=== PATIENT | female | born 1930 | race Caucasian/White ===

== ENCOUNTER 2016-02-24 | Outpatient (CLI) | payer MEDICARE, OTHER | END 2016-02-24 12:25 | disposition critical access hospital (66) | DX: R42 Dizziness and giddiness (principal) | CPT/HCPCS: A0425; A0429 ==

== ENCOUNTER 2016-02-24 12:34 | Inpatient (IN) | payer MEDICARE, OTHER ==
[2016-02-24] MEDS ORDERED: NITROGLYCERIN 2% PASTE TOP STA (15:02)
[2016-02-24] MEDS ORDERED: ASPIRIN CHEW 81 MG TABLET PO STA (15:02)
[2016-02-24] MEDS ORDERED: FUROSEMIDE 40 MG/4 ML VIAL IVP STA (15:02)
[2016-02-24] MEDS ORDERED: ASPIRIN CHEW 81 MG TABLET ONE (15:30)
[2016-02-24] MEDS ORDERED: FUROSEMIDE 40 MG/4 ML VIAL ONE (15:30)
[2016-02-24] MEDS ORDERED: ENOXAPARIN 40 MG/0.4 ML SYRINGE SUBQ STA (15:35)
[2016-02-24] MEDS ORDERED: ENOXAPARIN 40 MG/0.4 ML SYRINGE SUBQ ONE (15:44)
[2016-02-24] MEDS ORDERED: HYDROcod/ACETAM 5/325 MG TABLET PO PRN (16:26)
[2016-02-24] MEDS ORDERED: SODIUM CHLORIDE FLUSH 0.9% 10 ML SYRINGE IVP PRN (16:26)
[2016-02-24] MEDS ORDERED: ACETAMINOPHEN 325 MG TABLET PO PRN (16:26)
[2016-02-24] MEDS ORDERED: ONDANSETRON ODT 4 MG TABLET TL PRN (16:26)
[2016-02-24] MEDS ORDERED: NITROGLYCERIN SL 0.4 MG TABLET SL PRN (16:47)
[2016-02-24] MEDS ORDERED: MORPHINE 2 MG/ML SYRINGE IVP PRN (16:47)
[2016-02-24] MEDS ORDERED: PANTOPRAZOLE 40 MG TABLET PO SCH (19:00)
[2016-02-24] MEDS ORDERED: SODIUM CHLORIDE 0.45% 1,000 ML IV SCH (19:00)
[2016-02-24] MEDS ORDERED: NYSTATIN POWDER 15 GM TOP PRN (22:44)
[2016-02-24] MEDS: cefTRIAXone 1 GM in SODIUM CHLORIDE 0.9% MINIBAG 100 ML IV SCH (22:59)
[2016-02-24] MEDS: SODIUM CHLORIDE FLUSH 0.9% 10 ML SYRINGE IVP SCH (23:17)
[2016-02-25] MEDS ORDERED: PANTOPRAZOLE 40 MG VIAL IVP SCH (07:00)
[2016-02-25] MEDS: SODIUM CHLORIDE FLUSH 0.9% 10 ML SYRINGE IVP SCH (07:02)
[2016-02-25] MEDS ORDERED: FUROSEMIDE 20 MG TABLET PO SCH (08:00)
[2016-02-25] MEDS: cefTRIAXone 1 GM in SODIUM CHLORIDE 0.9% MINIBAG 100 ML IV SCH (08:35)
[2016-02-25] MEDS ORDERED: SODIUM CHLORIDE 0.9% 500 ML IV ONE (09:00)
[2016-02-25] MEDS ORDERED: DEXTROSE 5%-0.45% NACL 1,000 ML IV SCH (09:00)
[2016-02-25] MEDS ORDERED: ASPIRIN EC 81 MG TABLET PO SCH (09:00)
[2016-02-25] MEDS ORDERED: ENOXAPARIN 30 MG/0.3 ML SYRINGE SUBQ SCH (09:00)
[2016-02-25] MEDS ORDERED: POLYETHYLENE GLYCOL 3350 17 GM PACKET PO SCH (09:00)
[2016-02-25] MEDS ORDERED: FUROSEMIDE 20 MG/2 ML VIAL IVP SCH (10:00)
[2016-02-25] MEDS ORDERED: ACETAMINOPHEN 1,000 MG/100 ML 100 ML IV SCH (10:00)
[2016-02-25] MEDS ORDERED: LOPERAMIDE 2 MG CAPSULE PO PRN (12:32)
[2016-02-25] MEDS ORDERED: MORPHINE SOL 10 MG/0.5 ML SYRINGE PO PRN (12:32)
[2016-02-25] MEDS ORDERED: LORazepam 2 MG/ML SYRINGE IVP PRN (12:32)
[2016-02-25] MEDS ORDERED: GLYCOPYRROLATE 1 MG/5 ML VIAL SUBQ PRN (12:32)
[2016-02-25] MEDS ORDERED: ONDANSETRON ODT 4 MG TABLET TL PRN (12:32)
[2016-02-25] MEDS ORDERED: SCOPOLAMINE PATCH TOP SCH (13:00)
[2016-02-25] MEDS ORDERED: NYSTATIN POWDER 15 GM TOP SCH (16:00)
[2016-02-25] MEDS ORDERED: ATROPINE 1% OPHTH DROPS 2 ML EACHEYE PRN (18:10)
[2016-02-25] MEDS ORDERED: MINERAL OIL/PETROLAT OPHTH OINT EACHEYE PRN (18:33)
== END 2016-02-25 20:05 | disposition expired ==
DX: I11.0 Hypertensive heart disease with heart failure (principal); I50.9 Heart failure, unspecified; R09.02 Hypoxemia; I21.3 ST elevation (STEMI) myocardial infarction of unspecified site; I44.7 Left bundle-branch block, unspecified; N39.0 Urinary tract infection, site not specified; Z68.1 Body mass index [BMI] 19.9 or less, adult; I50.43 Acute on chronic combined systolic (congestive) and diastolic (congestive) heart failure; I95.9 Hypotension, unspecified; E86.0 Dehydration; I35.0 Nonrheumatic aortic (valve) stenosis; I48.0 Paroxysmal atrial fibrillation; R63.0 Anorexia; E78.5 Hyperlipidemia, unspecified; F03.90 Unspecified dementia, unspecified severity, without behavioral disturbance, psychotic disturbance, mood disturbance, and anxiety; I25.10 Atherosclerotic heart disease of native coronary artery without angina pectoris; M40.209 Unspecified kyphosis, site unspecified; M81.0 Age-related osteoporosis without current pathological fracture; Z66 Do not resuscitate; Z79.82 Long term (current) use of aspirin; Z91.81 History of falling